=== PATIENT | female | born 1965 | race Two or more races ===

== ENCOUNTER 2024-10-21 15:00 | Emergency (ER) | payer OTHER ==
[~2024-10-21] VITALS: Ht 162.6 cm; Wt 66.7 kg
[2024-10-21] MEDS ORDERED: NORVASC5 MG PO (15:14)
[2024-10-21] MEDS ORDERED: WIXELA 100-501 EACH (15:15)
[2024-10-21] MEDS ORDERED: TRIAMCINOLONE ACETONIDE 40 MG/ML VIAL IM ONE (17:00)
[2024-10-21] MEDS ORDERED: TRIAMCINOLONE ACETONIDE 40 MG/ML VIAL ONE (17:11)
[2024-10-21] MEDS ORDERED: MEDROLPACK PO (17:26)
== END 2024-10-21 17:40 ==
LOC: ER 15:02
DX: M25.531 Pain in right wrist (principal); Z88.2 Allergy status to sulfonamides; Z88.8 Allergy status to other drugs, medicaments and biological substances; Z88.6 Allergy status to analgesic agent; Z91.013 Allergy to seafood; G56.00 Carpal tunnel syndrome, unspecified upper limb

== ENCOUNTER 2024-10-28 16:23 | Emergency (ER) | payer OTHER ==
[~2024-10-28] VITALS: Ht 172.7 cm; Wt 74.8 kg
[~2024-10-28 16:23] MED LIST: MEDROLPACK PO; NORVASC5 MG PO; WIXELA 100-501 EACH
== END 2024-10-28 17:56 | disposition home or self-care (01) ==
LOC: ER 16:26
DX: J11.1 Influenza due to unidentified influenza virus with other respiratory manifestations (principal); Z88.2 Allergy status to sulfonamides; Z88.8 Allergy status to other drugs, medicaments and biological substances; Z88.6 Allergy status to analgesic agent; Z91.013 Allergy to seafood

== ENCOUNTER 2024-11-06 12:33 | Emergency (ER) | payer OTHER ==
[~2024-11-06] VITALS: Ht 162.6 cm; Wt 65.8 kg
[2024-11-06] MEDS ORDERED: GUAIFEN/DEXTROMETHORPHAN/PE 10 ML BLIST.PACK PO ONE (16:43)
[2024-11-06] MEDS ORDERED: BUDESONIDE 0.5 MG/2 ML AMPUL.NEB IH ONE ×2 (16:45→17:15)
[2024-11-06] MEDS ORDERED: GUAIFENESIN/DEXTROMETHORPHAN 10ML BLIST.PACK PO ONE (16:45)
[2024-11-06] MEDS ORDERED: IPRATROPIUM BROMIDE 0.5 MG/2.5 ML AMPUL.NEB IH ONE ×2 (16:45→17:15)
[2024-11-06 18:22] LABS: HEMOGLOBIN 12.4 g/dL (12.0-15.00); MEAN CELL VOLUME 84.7 fL (80.00-100.00); MEAN CORPUSCULAR HEMOGLOBIN 27.6 pg (27.00-32.0); MEAN CORPUSCULAR HGB CONC 32.5 g/dl (32.0-36.0); PLATELET COUNT 345 K/uL (150-450); RED BLOOD COUNT 4.48 M/uL (4.00-6.00); RED CELL DISTRIBUTION WIDTH 13.9 % (11.5-14.5)
[2024-11-06] MEDS ORDERED: BENZONATATE200 M1 PO (19:53)
[2024-11-06] MEDS ORDERED: IPRATROPIU0.2 MG/1 M IH (19:56)
== END 2024-11-06 20:09 ==
LOC: ER 12:36
PROVIDERS: General Practice
DX: J06.9 Acute upper respiratory infection, unspecified (principal); Z20.822 Contact with and (suspected) exposure to COVID-19; I10 Essential (primary) hypertension; Z88.2 Allergy status to sulfonamides; Z88.8 Allergy status to other drugs, medicaments and biological substances; Z87.09 Personal history of other diseases of the respiratory system; Z88.6 Allergy status to analgesic agent; Z91.013 Allergy to seafood

== ENCOUNTER 2025-06-15 13:18 | Emergency (ER) | payer OTHER ==
[~2025-06-15] VITALS: Ht 162.6 cm; Wt 64.4 kg
[~2025-06-15 13:18] MED LIST changes: +BENZONATATE200 M1 PO; +IPRATROPIU0.2 MG/1 M IH
[2025-06-15] MEDS ORDERED: MILLIPRED5 MG (13:54)
[2025-06-15] MEDS ORDERED: ORPHENADRINE CITRATE 30 MG/ML AMPUL IM STA (15:22)
[2025-06-15] MEDS ORDERED: ACETAMINOPHEN 500 MG GEL..CAP PO STA (15:22)
[2025-06-15] MEDS ORDERED: ORPHENADRINE CITRATE 30 MG/ML AMPUL ONE (15:29)
[2025-06-15] MEDS ORDERED: ACETAMINOPHEN 500 MG GEL..CAP PO ONE (15:29)
[2025-06-15] MEDS ORDERED: NORFLEX100MG PO (17:14)
== END 2025-06-15 17:59 | disposition home or self-care (01) ==
LOC: ER 13:21
DX: M25.562 Pain in left knee (principal); I10 Essential (primary) hypertension; Z88.2 Allergy status to sulfonamides; Z88.6 Allergy status to analgesic agent; Z91.013 Allergy to seafood; Z91.041 Radiographic dye allergy status